=== PATIENT | male | born 1965 | race Caucasian/White ===

== ENCOUNTER 2022-09-20 03:12 | Observation (INO) | payer OTHER ==
[2022-09-20 03:35] VITALS: BMI 34.5
[2022-09-20 04:30] LABS: BASO % 0.4 % (0-2.0); HEMOGLOBIN 15.3 GM/dL (11.7-16.9); MONO % 6.6 % (3.8-10.2)
[2022-09-20 04:32] LABS: EOS % 0.6 % (0-4.5); HEMATOCRIT 44.3 % (35.4-49); LYMPH % 25.9 % (8-40); MCH 29.2 pg (25.7-33.7); MCHC 34.6 g/dl (32.0-35.9); MEAN CELL VOLUME 84.6 fl (80-96); MEAN PLT VOLUME 8.6 fl (7.5-11.1); NEUT % 66.5 % (42.8-82.8); PLATELET COUNT 336 10^3/uL (134-434); RBC 5.24 M/mm3 (4.00-5.60); WHITE BLOOD COUNT 10.1 K/mm3 (4.0-10.0)
[2022-09-20 04:36] LABS: INR 1.09 (0.83-1.09); PROTHROMBIN TIME (PATIENT) 12.6 SEC (9.7-13.0)
[2022-09-20 04:49] LABS: CALCIUM 8.6 mg/dL (8.5-10.1)
[2022-09-20 04:51] LABS: ALBUMIN 3.7 g/dl (3.4-5.0); BLOOD UREA NITROGEN 19.3 mg/dL (7-18)
[2022-09-20 04:53] LABS: CREATININE 0.9 mg/dL (0.55-1.3)
[2022-09-20 04:54] LABS: BILIRUBIN,TOTAL 0.5 mg/dL (0.2-1); TOT PROT 6.9 g/dl (6.4-8.2)
[2022-09-20] MEDS ORDERED: ASPIRIN COATED 81 MG TABLET.EC ONE (11:10)
[2022-09-20] MEDS: ASPIRIN COATED 81 MG TABLET.EC PO SCH (11:16)
[2022-09-20] MEDS: INSULIN SLIDING SCALE (NOVOLOG) 1 VIAL SQ SCH ×3 (11:21→21:03)
[2022-09-20] MEDS ORDERED: ACETAMINOPHEN 325 MG TABLET (FP) ONE (20:18)
[2022-09-20] MEDS: ACETAMINOPHEN 325 MG TABLET (FP) PO PRN (20:26)
[2022-09-20] MEDS ORDERED: ATORVASTATIN CA 20 MG TABLET (FP) ONE (21:06)
[2022-09-20] MEDS ORDERED: HEPARIN NA (PORCINE) 5,000 UNITS/ML 1ML VIAL ONE (21:07)
[2022-09-20] MEDS: ATORVASTATIN CA 20 MG TABLET (FP) PO SCH (21:12)
[2022-09-20] MEDS: HEPARIN NA (PORCINE) 5,000 UNITS/ML 1ML VIAL SQ SCH (21:12)
[2022-09-20] MEDS ORDERED: [UNRECOGNIZED DRUG - OTHER] PO SCH (22:00)
[2022-09-21 07:25] LABS: BASO % 0.5 % (0-2.0); HEMATOCRIT 45.3 % (35.4-49); HEMOGLOBIN 15.3 GM/dL (11.7-16.9); LYMPH % 32.7 % (8-40); MCHC 33.8 g/dl (32.0-35.9); MEAN PLT VOLUME 8.6 fl (7.5-11.1); MONO % 5.5 % (3.8-10.2); NEUT % 59.3 % (42.8-82.8); PLATELET COUNT 307 10^3/uL (134-434); RBC 5.27 M/mm3 (4.00-5.60); RDW 13.8 % (11.9-15.9); WHITE BLOOD COUNT 8.9 K/mm3 (4.0-10.0)
[2022-09-21 07:45] LABS: ALBUMIN 3.5 g/dl (3.4-5.0); BLOOD UREA NITROGEN 16.5 mg/dL (7-18); CALCIUM 8.7 mg/dL (8.5-10.1)
[2022-09-21 07:46] LABS: CHOLESTEROL 152 mg/dL (50-200); TRIGLYCERIDES 126 mg/dL (0-150)
[2022-09-21 07:47] LABS: LDL CHOLESTEROL (ONLY SJRH) 87 mg/dL (5-100)
[2022-09-21 07:48] LABS: CREATININE 0.8 mg/dL (0.55-1.3)
[2022-09-21 07:49] LABS: HDL CHOLESTEROL 49 mg/dL (40-60)
[2022-09-21 07:50] LABS: BILIRUBIN,TOTAL 0.6 mg/dL (0.2-1); TOT PROT 6.6 g/dl (6.4-8.2)
[2022-09-21] MEDS: INSULIN SLIDING SCALE (NOVOLOG) 1 VIAL SQ SCH ×4 (08:05→23:09)
[2022-09-21] MEDS ORDERED: ACETAMINOPHEN 325 MG TABLET (FP) ONE (08:08)
[2022-09-21] MEDS: ACETAMINOPHEN 325 MG TABLET (FP) PO PRN (08:09)
[2022-09-21] MEDS ORDERED: HEPARIN NA (PORCINE) 5,000 UNITS/ML 1ML VIAL ONE ×2 (09:05→23:02)
[2022-09-21] MEDS ORDERED: RAMIPRIL 5 MG CAPSULE ONE (09:05)
[2022-09-21] MEDS ORDERED: sitaGLIPtin PHOSPHATE 50 MG TABLET ONE (09:05)
[2022-09-21] MEDS ORDERED: ASPIRIN COATED 81 MG TABLET.EC ONE (09:05)
[2022-09-21] MEDS: sitaGLIPtin PHOSPHATE 50 MG TABLET PO SCH (09:08)
[2022-09-21] MEDS: HEPARIN NA (PORCINE) 5,000 UNITS/ML 1ML VIAL SQ SCH ×2 (09:08→23:08)
[2022-09-21] MEDS: ASPIRIN COATED 81 MG TABLET.EC PO SCH (09:08)
[2022-09-21] MEDS: RAMIPRIL 5 MG CAPSULE PO SCH (09:08)
[2022-09-21] MEDS ORDERED: RAMIPRIL 5 MG CAPSULE PO SCH (10:00)
[2022-09-21] MEDS ORDERED: ATORVASTATIN CA 20 MG TABLET (FP) PO SCH (22:00)
[2022-09-21] MEDS ORDERED: ATORVASTATIN CA 20 MG TABLET (FP) ONE (23:02)
[2022-09-21] MEDS: ATORVASTATIN CA 20 MG TABLET (FP) PO SCH (23:09)
[2022-09-22 07:24] VITALS: PULSE 69
[2022-09-22] MEDS: INSULIN SLIDING SCALE (NOVOLOG) 1 VIAL SQ SCH ×3 (07:51→16:36)
[2022-09-22 08:01] VITALS: BP 118/83; RESP 18; TEMP 98.2
[2022-09-22 08:18] LABS: BLOOD UREA NITROGEN 18.8 mg/dL (7-18); CALCIUM 8.9 mg/dL (8.5-10.1)
[2022-09-22 08:22] LABS: CREATININE 0.8 mg/dL (0.55-1.3)
[2022-09-22] MEDS ORDERED: REGADENOSON 0.4 MG/5 ML PRE-FILLED SYRINGE IVPUSH ONE ×2 (09:13→10:30)
[2022-09-22] MEDS: RAMIPRIL 5 MG CAPSULE PO SCH (13:47)
[2022-09-22] MEDS: sitaGLIPtin PHOSPHATE 50 MG TABLET PO SCH (13:47)
[2022-09-22] MEDS: ASPIRIN COATED 81 MG TABLET.EC PO SCH (13:47)
[2022-09-22] MEDS: HEPARIN NA (PORCINE) 5,000 UNITS/ML 1ML VIAL SQ SCH (13:47)
== END 2022-09-22 17:01 | disposition home or self-care (01) ==
LOC: JER 03:12 → JERBED 05:30 → J4W 09-21 23:55
PROVIDERS: ADMIT Internal Medicine; ATTEND Internal Medicine
PROC: 3E023GC Introduction of Other Therapeutic Substance into Muscle, Percutaneous Approach (ICD-10-PCS; principal; 2022-09-20)
PROC: 3E033GC Introduction of Other Therapeutic Substance into Peripheral Vein, Percutaneous Approach (ICD-10-PCS; 2022-09-20)
DX: R07.89 Other chest pain (principal); R20.2 Paresthesia of skin; I10 Essential (primary) hypertension; E78.5 Hyperlipidemia, unspecified; E11.9 Type 2 diabetes mellitus without complications; Z88.0 Allergy status to penicillin; E66.8 Other obesity; Z68.34 Body mass index [BMI] 34.0-34.9, adult
CPT/HCPCS: 0241U-QW; 36415; 71045-TC-FY; 78452-TC; 80048; 80053; 80061; 82962; 84484; 85025; 85379; 85610; 93005; 93010; 93017; 93306-TC; 99285-25; A9502; G0378; J1644; J2785